=== PATIENT | female | born 1950 ===

== ENCOUNTER → 2017-07-27 13:45 | Outpatient (CLI) | payer MEDICARE ==
[2017-07-27 15:19] LABS: HEMATOCRIT 31.6 % (36.0-48.0); MCH 29.2 pg (26.0-34.0); MCHC 31.6 g/dL (31.0-37.0); MCV 92.4 fL (80.0-100.0); RBC 3.42 10x6/uL (4.00-5.40); RDW 16.7 % (11.5-14.5); WBC 11.6 10x3/uL (4.8-10.8)
[2017-07-27 15:32] LABS: PLATELET COUNT 33 10x3/uL (130-400)
[2017-07-27 15:43] LABS: CREATININE - SERUM 1.1 mg/dL (0.6-1.3); VANCOMYCIN - TROUGH 7.4 ug/mL (10.0-20.0)
[2017-07-27 16:13] LABS: LYMPHOCYTES 41 % (15-50); MONOCYTES 5 % (2-11); NEUTROPHILS 54 % (40-80)
[2017-07-27 16:14] LABS: PLATELET ESTIMATE DECREASED
== END | disposition home or self-care (01) ==
LOC: D.LABREF 13:45
PROVIDERS: Internal Medicine Infectious Disease
DX: Z51.81 Encounter for therapeutic drug level monitoring (principal); Z79.2 Long term (current) use of antibiotics

== ENCOUNTER → 2017-08-13 13:14 | Outpatient (CLI) | payer MEDICARE | END | disposition home or self-care (01) | LOC: D.LABREF 13:14 | DX: D69.6 Thrombocytopenia, unspecified (principal); R30.0 Dysuria; Z51.81 Encounter for therapeutic drug level monitoring; Z79.2 Long term (current) use of antibiotics ==